=== PATIENT | female | born 1970 | race American Indian/Alaskan Native ===

== ENCOUNTER 2017-02-16 10:09 | Outpatient (CLI) | payer BC ==
--- NOTE | 2017-02-16 15:41 | Mammography Report ---
BILATERAL DIGITAL SCREENING MAMMOGRAM with CAD : 02/16/17 10:09:00 CLINICAL: Routine screening.History of a right cyst at 9 o'clock. COMPARISON:01/30/15 FINDINGS: The breasts are heterogeneously dense, which may obscure small masses.The previously confirmed cyst at 9 o'clock in the right breast is smaller. No mass, architectural distortion or suspicious calcifications. IMPRESSION: No mammographic evidence of malignancy. BI-RADS CATEGORY: 2 -- Benign RECOMMENDATION: Routine mammographic screening in one year. COMMENT: Patient follow-up letters are generated by our [employer] application.
== END 2017-02-16 10:10 | disposition home or self-care (01) ==
LOC: SPVWC 10:09
PROVIDERS: ATTEND Family Medicine Adult Medicine
DX: Z12.31 Encounter for screening mammogram for malignant neoplasm of breast (principal)
CPT/HCPCS: 77067; G0202